=== PATIENT | male | born 1935 | race Caucasian/White ===

== ENCOUNTER 2020-02-25 14:54 | Emergency (ER) | payer MEDICARE, OTHER ==
[2020-02-25] MEDS ORDERED: Sodium Chloride 0.9% 10 ML Syringe FLUSH PRN (14:59)
[2020-02-25] MEDS ORDERED: Sodium Chloride 0.9% 2.5 ML Syringe FLUSH PRN (14:59)
--- NOTE | 2020-02-25 15:01 | EDM.PDOC ---
ED HPI GENERAL MEDICAL PROBLEM - General Chief Complaint: Chest Pain Stated Complaint: CHEST PAIN Time Seen by Provider: 02/25/20 14:57 - History of Present Illness INITIAL COMMENTS - FREE TEXT/NARRATIVE: History of present illness: Patient complains of chest pressure. It started last night. Associated with shortness of breath. Does not really diaphoresis nausea vomiting or other symptoms. 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 The patient had thyroid cancer diagnosed in 2013. He had a thyroidectomy in [place]. Subsequently had to have an emergency tracheostomy in [place]. The patient has body aches, fatigue, extreme weakness that he has experienced since he started the oral chemotherapy and these are listed as side effects on the brochure that they brought. [] Review of systems: As per history of present illness and below otherwise all systems reviewed and negative. Past medical history: As per history of present illness and as reviewed below otherwise noncontributory. Surgical history: As per history of present illness and as reviewed below otherwise noncontributory. Social history: No reported history of drug or alcohol abuse. Family history: As per history of present illness and as reviewed below otherwise noncontributory. Physical exam: Constitutional -thin with muscle wasting-and in no acute distress HEENT -yes to me with anterior site no evidence of inflammation. Normocephalic, no evidence of trauma - external nose and mouth normal - no mass in neck and no JVD - mucosae moist EYES - full EOM, PERRL, no icterus - no evidence of inflammation, injection, or drainage Respiratory -expiratory phase of respiration. Wheezes throughout. Diminished breath sounds throughout. No respiratory distress, equal bilateral expansion. Cardiovascular - Regular Rhythm with S1 and S2 appreciated and no murmur, gallop or rub. GI - abdomen soft without distension or organomegaly - normal bowel sounds - no guard or rebound Musculoskeletal no gross deformity of long bones or joints - no tenderness, swelling or edema Neurologic - Alert and oriented times four - CN II-XII grossly intact - motor sensory and coordination symmetrically normal Psychiatric - appropriate mood and affect with normal thought content Hematologic - No petechiae or purpura - mucosa appropriate color and sclera not pale - normal nail bed color and refill Integument - no rash or evidence of trauma - normal turgor Diagnostics: [] Therapeutics: [] Impression: [] Plan: [] Definitive disposition and diagnosis as appropriate pending reevaluation and review of above. Middle Chest Pain Score (Numeric/FACES): 1 - Related Data Allergies Allergy/AdvReac Type Severity Reaction Status Date / Time No Known Allergies Allergy Verified 02/25/20 14:55 Home Meds: Home Meds Aspirin [Latasha Chewable] 81 mg PO DAILY 10/27/13 [History] Levothyroxine 125 mcg PO DAILY 10/27/13 [History] calcitrioL [Rocaltrol] 2 tab PO DAILY 10/27/13 [History] Ezetimibe [Zetia] 0.5 tab PO DAILY 10/14/15 [History] Acetaminophen/HYDROcodone [Dugger 325-7.5 MG] 1 tab PO Q4H PRN #20 tab 02/25/20 [Rx] Lenvatinib Mesylate [Lenvima] 24 mg PO DAILY 02/25/20 [History] Metoprolol Succinate [Toprol XL 50mg] 50 mg PO DAILY 02/25/20 [History] amLODIPine [Norvasc] 5 mg PO DAILY 02/25/20 [History] Past Medical History Endocrine/Metabolic History: Reports: Hypothyroidism Oncologic (Cancer) History: Reports: Thyroid - Infectious Disease History Infectious Disease History: Reports: Chicken Pox, Measles, Mumps, Shingles - Past Surgical History Oncologic Surgical History: Reports: Other (See Below) Social & Family History - Family History Family Medical History: No Pertinent Family History ED ROS GENERAL - Review of Systems Review Of Systems: Comprehensive ROS is negative, except as noted in HPI. ED EXAM, GENERAL - Physical Exam Exam: See Below Free Text/Narrative:: My physical exam is in the HPI #1 Interpretation EKG Interpretation Comments: eKG done 1452 hrs. atrial fibrillation heart rate 110 axis 59 QT 595. There are borderline T abnormalities in a prolonged QT. Compared to 01/03/2020 there are no changes to indicate acute injury. Impression no acute injury Course - Vital Signs Text/Narrative:: 5:55 PM the patient is quite comfortable. He was able comfortable with a pain of only 1 out of 10 before the morphine. Patient has no pain medicine at home. The CT reveals some reduction in size of the pulmonary nodules as had been helped with the new medicine. There is a lytic lesion in the 7 which is new since a prior CT of about a month ago. Lesions in the lumbar spine and sacral area are still present. These are considered large enough to be at risk for pathologic fracture as it is a lytic lesion in C7. Last Recorded V/S: Last Vital Signs Temp 36.3 C 02/25/20 14:56 Pulse 91 02/25/20 15:30 Resp 17 02/25/20 15:30 BP 129/83 02/25/20 15:30 Pulse Ox 94 L 02/25/20 15:30 - Orders/Labs/Meds Orders: Active Orders 24 hr Category Date Time Status EKG Documentation Completion [RC] AM Care 02/25/20 14:59 Active Sodium Chloride 0.9% [Saline Flush] Med 02/25/20 14:59 Active 10 ml FLUSH ASDIRECTED PRN Sodium Chloride 0.9% [Saline Flush] Med 02/25/20 14:59 Active 2.5 ml FLUSH ASDIRECTED PRN Saline Lock Insert [OM.PC] Stat Oth 02/25/20 14:59 Ordered Medication Orders Sodium Chloride (Saline Flush) 10 ml FLUSH ASDIRECTED PRN PRN Reason: Keep Vein Open Last Admin: 02/25/20 15:13 Dose: 10 ml Documented by: MATEO Sodium Chloride (Saline Flush) 2.5 ml FLUSH ASDIRECTED PRN PRN Reason: Keep Vein Open Last Admin: 02/25/20 15:14 Dose: 2.5 ml Documented by: MATEO Labs: Laboratory Tests 02/25/20 02/25/20 02/25/20 Range/Units 14:55 14:55 14:55 WBC 6.95 (4.0-11.0) K/uL RBC 5.47 (4.50-5.90) M/uL Hgb 17.0 (13.0-17.0) g/dL Hct 49.5 (38.0-50.0) % MCV 90.5 (80.0-98.0) fL MCH 31.1 (27.0-32.0) pg MCHC 34.3 (31.0-37.0) g/dL RDW Std Deviation 47.7 (28.0-62.0) fl RDW Coeff of Dillon 15 (11.0-15.0) % Plt Count 138 L (150-400) K/uL MPV 10.80 (7.40-12.00) fL Neut % (Auto) 72.0 (48.0-80.0) % Lymph % (Auto) 18.7 (16.0-40.0) % [place] % (Auto) 8.1 (0.0-15.0) % Eos % (Auto) 0.9 (0.0-7.0) % Baso % (Auto) 0.3 (0.0-1.5) % Neut # (Auto) 5.0 (1.4-5.7) K/uL Lymph # (Auto) 1.3 (0.6-2.4) K/uL Bel[place]ami # (Auto) 0.6 (0.0-0.8) K/uL Eos # (Auto) 0.1 (0.0-0.7) K/uL Baso # (Auto) 0.0 (0.0-0.1) K/uL Nucleated RBC % 0.0 /100WBC Nucleated RBCs # 0 K/uL Sodium 141 (136-148) mmol/L Potassium 4.3 (3.5-5.1) mmol/L Chloride 102 (98-107) mmol/L Carbon Dioxide 29.5 (21.0-32.0) mmol/L BUN 26 H (7.0-18.0) mg/dL Creatinine 1.2 (0.8-1.3) mg/dL Est Cr Clr Drug Dosing 45.36 mL/min Estimated GFR (MDRD) 57.4 ml/min Glucose 103 (74-106) mg/dL Calcium 9.1 (8.5-10.1) mg/dL Total Bilirubin 1.1 H (0.2-1.0) mg/dL AST 27 (15-37) IU/L ALT 26 (14-63) IU/L Alkaline Phosphatase 133 H (46-116) U/L Troponin I < 0.050 (0.000-0.056) ng/mL Total Protein 7.3 (6.4-8.2) g/dL Albumin 3.5 (3.4-5.0) g/dL Globulin 3.8 (2.6-4.0) g/dL Albumin/Globulin Ratio 0.9 (0.9-1.6) Influenza Type A RNA (NEGATIVE) Influenza Type B RNA (NEGATIVE) SARS-CoV-2 RNA (JEFFREY) (NEGATIVE) 02/25/20 02/25/20 Range/Units 15:28 17:35 WBC (4.0-11.0) K/uL RBC (4.50-5.90) M/uL Hgb (13.0-17.0) g/dL Hct (38.0-50.0) % MCV (80.0-98.0) fL MCH (27.0-32.0) pg MCHC (31.0-37.0) g/dL RDW Std Deviation (28.0-62.0) fl RDW Coeff of Dillon (11.0-15.0) % Plt Count (150-400) K/uL MPV (7.40-12.00) fL Neut % (Auto) (48.0-80.0) % Lymph % (Auto) (16.0-40.0) % [place] % (Auto) (0.0-15.0) % Eos % (Auto) (0.0-7.0) % Baso % (Auto) (0.0-1.5) % Neut # (Auto) (1.4-5.7) K/uL Lymph # (Auto) (0.6-2.4) K/uL Bel[place]ami # (Auto) (0.0-0.8) K/uL Eos # (Auto) (0.0-0.7) K/uL Baso # (Auto) (0.0-0.1) K/uL Nucleated RBC % /100WBC Nucleated RBCs # K/uL Sodium (136-148) mmol/L Potassium (3.5-5.1) mmol/L Chloride (98-107) mmol/L Carbon Dioxide (21.0-32.0) mmol/L BUN (7.0-18.0) mg/dL Creatinine (0.8-1.3) mg/dL Est Cr Clr Drug Dosing mL/min Estimated GFR (MDRD) ml/min Glucose (74-106) mg/dL Calcium (8.5-10.1) mg/dL Total Bilirubin (0.2-1.0) mg/dL AST (15-37) IU/L ALT (14-63) IU/L Alkaline Phosphatase (46-116) U/L Troponin I < 0.050 (0.000-0.056) ng/mL Total Protein (6.4-8.2) g/dL Albumin (3.4-5.0) g/dL Globulin (2.6-4.0) g/dL Albumin/Globulin Ratio (0.9-1.6) Influenza Type A RNA NEGATIVE (NEGATIVE) Influenza Type B RNA NEGATIVE (NEGATIVE) SARS-CoV-2 RNA (JEFFREY) NEGATIVE (NEGATIVE) Meds: Medications Generic Name Dose Route Start Last Admin Trade Name Freq PRN Reason Stop Dose Admin Sodium Chloride 10 ml 02/25/20 14:59 02/25/20 15:13 Saline Flush FLUSH 10 ml ASDIRECTED PRN Administration Keep Vein Open Sodium Chloride 2.5 ml 02/25/20 14:59 02/25/20 15:14 Saline Flush FLUSH 2.5 ml ASDIRECTED PRN Administration Keep Vein Open Discontinued Medications Generic Name Dose Route Start Last Admin Trade Name Freq PRN Reason Stop Dose Admin Iopamidol 100 ml 02/25/20 17:08 02/25/20 17:09 Isovue Multipack-370 (76%) IVPUSH 02/25/20 17:09 100 ml ONETIME ONE Administration Morphine Sulfate 2 mg 02/25/20 16:46 02/25/20 17:05 Morphine IVPUSH 02/25/20 16:47 2 mg ONETIME ONE Administration Departure - Departure Time of Disposition: 18:07 Disposition: Home, Self-Care 01 Condition: Good Clinical Impression: Dyspnea, Chest pain, Pulmonary metastasis, Metastasis to spinal column - Discharge Information Prescriptions: Acetaminophen/HYDROcodone [Dugger 325-7.5 MG] 1 tab PO Q4H PRN #20 tab PRN Reason: Pain (Moderate 4-6) Instructions: Shortness of Breath, Adult, [id number], Nonspecific Chest Pain, Adult Referrals: PCP,None [Primary Care Provider] - Forms: ED Department Discharge Additional Instructions: [facility] - Primary Care [address] [place] [id number] [id number] The following information is given to patients seen in the emergency department who are being discharged to home. This information is to outline your options for follow-up care. We provide all patients seen in our emergency department with a follow-up referral. The need for follow-up, as well as the timing and circumstances, are variable depending upon the specifics of your emergency department visit. If you don't have a primary care physician on staff, we will provide you with a referral. We always advise you to contact your personal physician following an emergency department visit to inform them of the circumstance of the visit and for follow-up with them and/or the need for any referrals to a consulting specialist. The emergency department will also refer you to a specialist when appropriate. This referral assures that you have the opportunity for follow-up care with a specialist. All of these measure are taken in an effort to provide you with optimal care, which includes your follow-up. Under all circumstances we always encourage you to contact your private physician who remains a resource for coordinating your care. When calling for follow-up care, please make the office aware that this follow-up is from your recent emergency room visit. If for any reason you are refused follow-up, please contact the [facility] Emergency Department at and asked to speak to the emergency department charge nurse. Sepsis Event Note (ED) - Evaluation Sepsis Screening Result: No Definite Risk - Focused Exam Vital Signs: Vital Signs Temp Pulse Resp BP Pulse Ox 02/25/20 15:30 91 17 129/83 94 L 02/25/20 14:56 36.3 C 107 H 16 142/97 H 96 - My Orders Last 24 Hours: My Active Orders 02/25/20 14:59 EKG Documentation Completion [RC] AM Sodium Chloride 0.9% [Saline Flush] 10 ml FLUSH ASDIRECTED PRN Sodium Chloride 0.9% [Saline Flush] 2.5 ml FLUSH ASDIRECTED PRN Saline Lock Insert [OM.PC] Stat - Assessment/Plan Last 24 Hours: My Active Orders 02/25/20 14:59 EKG Documentation Completion [RC] AM Sodium Chloride 0.9% [Saline Flush] 10 ml FLUSH ASDIRECTED PRN Sodium Chloride 0.9% [Saline Flush] 2.5 ml FLUSH ASDIRECTED PRN Saline Lock Insert [OM.PC] Stat
[2020-02-25 15:29] LABS: CARBON DIOXIDE,CO2 29.5 mmol/L (21.0-32.0); POTASSIUM,K 4.3 mmol/L (3.5-5.1)
[2020-02-25 16:24] LABS: CORONAVIRUS COVID-19 NAA NEGATIVE (NEGATIVE); INFLUENZA A NAA NEGATIVE (NEGATIVE); INFLUENZA B NAA NEGATIVE (NEGATIVE)
--- NOTE | 2020-02-25 16:45 | CR ---
Indication: Chest pain. Technique: AP portable view of the chest. Comparison: April 13, 2014. Findings: Minimal left basilar atelectasis is identified. The heart is normal in size. No pleural effusion or pneumothorax is identified. Impression: Minimal left basilar atelectasis. Dictated by Pretty Silvestre MD @ Feb 25 2020 3:35PM Signed by Dr. Pretty Silvestre @ Feb 25 2020 4:43PM
[2020-02-25] MEDS ORDERED: Morphine 2 MG/ML SYRINGE IVPUSH ONE (16:46)
[2020-02-25] MEDS ORDERED: Iopamidol 755 MG/ML 500 ML Multipack Bottle IVPUSH ONE (17:08)
--- NOTE | 2020-02-25 17:48 | CT ---
HISTORY: Thyroid cancer. Dyspnea. Taking chemotherapy. COMPARISON: 01/16/2028. TECHNIQUE: Axial images were obtained through the chest following 100 cc of Isovue-370 intravenous contrast. FINDINGS: Tracheostomy tube. Adequate bolus of contrast. No evidence for pulmonary embolism. Left infrahilar mass has decreased in size and now measures 2.6 x 2.7 previously 4 cm. Most of the pulmonary nodules have decreased in size as well. For example in the posterior right lower lobe there is a pulmonary nodule that measures 1.1 cm, previously 1.5 cm image 83 series 4. No acute infiltrates. Old rib fracture deformity on the left. Lytic lesions of the vertebral bodies L1, T7 and C7. Given their size they are at risk for pathologic fracture. Smaller lytic areas in the spine and manubrium also possible metastatic bony lesions. The adrenal glands are normal. Impression : 1. No evidence for pulmonary embolism. 2. Decrease in size of left infrahilar mass, and bilateral multiple pulmonary nodules appear smaller. 3. Metastatic bony lesions, notably at L1 and T7 and C7 vertebral bodies. Given their size, they are at risk for pathologic fracture. Please note that all CT scans at this facility use dose modulation, iterative reconstruction, and/or weight-based dosing when appropriate to reduce radiation dose to as low as reasonably achievable. Dictated by Eladia Da Silva MD @ Feb 25 2020 5:35PM Signed by Dr. Eladia Da Silva @ Feb 25 2020 5:47PM
[2020-02-25 18:26] VITALS: BP 141/88; PULSE 102
== END 2020-02-25 18:25 | disposition home or self-care (01) ==
LOC: MW.ED 14:54
DX: C41.2 Malignant neoplasm of vertebral column (principal); C78.00 Secondary malignant neoplasm of unspecified lung; E03.9 Hypothyroidism, unspecified; I48.91 Unspecified atrial fibrillation; Z79.899 Other long term (current) drug therapy; Z20.828 Contact with and (suspected) exposure to other viral communicable diseases
CPT/HCPCS: 0240U; 36415; 71045; 71275; 80053; 84484; 85025; 93005; 96374; 99285; J2270; Q9967; 93010; 99284

== ENCOUNTER 2020-08-22 10:42 | Emergency (ER) | payer MEDICARE, OTHER ==
[2020-08-22] MEDS ORDERED: Sodium Chloride 0.9% 1,000 ML IV ONE (11:10)
[2020-08-22] MEDS ORDERED: Sodium Chloride 0.9% 2.5 ML Syringe FLUSH PRN (11:10)
[2020-08-22] MEDS ORDERED: Sodium Chloride 0.9% 10 ML Syringe FLUSH PRN (11:10)
--- NOTE | 2020-08-22 11:19 | EDM.PDOC ---
ED HPI GENERAL MEDICAL PROBLEM - General Chief Complaint: Respiratory Problem Stated Complaint: SOB Time Seen by Provider: 08/22/20 10:57 Source of Information: Reports: Patient History Limitations: Reports: No Limitations - History of Present Illness INITIAL COMMENTS - FREE TEXT/NARRATIVE: HISTORY AND PHYSICAL: History of present illness: Patient is an 85-year-old male who presents to the emergency room with complaints of shortness of breath, intermittent chest pain, fatigue and generally feeling well since January but worse over the past few days to 1 week. Patient has a past medical history of metastatic thyroid cancer and is currently taking oral Lenvima over the past 6 months. The states he is constantly having mixed side effects from these drugs and feels it is related to why he is here today. Patient's shortness of breath and chest pain are exacerbated with physical activity and improve at rest. He currently is not SOB nor having chest pain, but feels "run down". Patient denies any fever, chills, headache, change in vision, syncope or near syncope. Denies any hemoptysis or cough. Denies any abdominal pain, nausea, vomiting, diarrhea, constipation or dysuria. Has not noted any blood in urine or stool. Patient has been eating and drinking appropriately. Past medical history from atrial fibrillation, hypertension, thyroidectomy, thyroid cancer with metastases. Primary care provider is Dr. Curtis. Review of systems: As per history of present illness and below otherwise all systems reviewed and negative. Past medical history: As per history of present illness and as reviewed below otherwise noncontributory. Surgical history: As per history of present illness and as reviewed below otherwise noncontributory. Social history: See social history for further information Family history: As per history of present illness and as reviewed below otherwise noncontributory. Physical exam: General: Chronically ill appearing 85-year-old male. Alert and orientated x 3. Nontoxic in appearance and in no acute distress. Vital signs are stable and have been reviewed by me. Nursing notes were reviewed. Accompanied by who is at bedside and attentive to needs. HEENT: Atraumatic, normocephalic, pupils equal and reactive bilaterally, negative for conjunctival pallor or scleral icterus, mucous membranes moist, throat clear, trach dressing intact without any surrounding erythema, neck supple, nontender, trachea midline. No drooling or trismus noted. No meningeal signs. No hot potato voice noted. Lungs: Clear to auscultation bilaterally. No wheezes, rales, or rhonchi. Chest nontender. Normal work of breathing, no accessory muscles used. Heart: S1S2, regular rate and rhythm without overt murmur, gallops, or rubs. No JVD. No peripheral edema Abdomen: Soft, nondistended, nontender. Normoactive bowel sounds. Negative for masses or costovertebral tenderness. Skin: Intact, warm, dry. No lesions or rashes noted. Hematologic: No petechiae or purpra. Mucosa appropriate color and normal nail bed color and refill. Extremities: Atraumatic, moves all extremities per self without difficulty or deficits, negative for cords or calf pain. Neurovascular unremarkable. Neuro: Awake, alert, oriented. Cranial nerves II through XII unremarkable. Cerebellum unremarkable. Motor and sensory unremarkable throughout. Exam nonfocal. Psychiatric: Mood and affect are appropriate. Normal thought process. Answering questions appropriately. Notes: *This patient was seen and evaluated during the 2019 SARS-CoV-2 novel coronavirus pandemic period. Community viral transmission is ongoing at time of this encounter and the emergency department is operating under pandemic response procedures. 07/20/2020: Patient had a CT of the soft tissue neck, chest, abdomen and pelvis. 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 These were compared to imaging that was done on April 092020, no new findings. Patient is an 85-year-old male who has a history of metastatic thyroid cancer who states he has not felt well since initiating oral chemotherapy. His states that the symptoms/side effects he has experienced from the oral chemotherapy range/very constantly. She feels today's symptoms are related to the medications he is taking. Patient states he has felt short of breath and having intermittent chest pain anytime he is ambulating. Symptoms do resolve when he is at rest. He is agreeable to lab work and imaging. I will add a D- dimer on to the patient's labs as he is on a beta-reina with a heart rate in the 90s. BUN and creatinine are slightly elevated, I do see he has a history of this in the past. He has recieved a liter of NS. Patient's D-dimer is elevated, will do a CT a of the chest to rule out PE. COVID-[address] shows no evidence of acute PE. Lung and bone metastases with no significant change. I have talked with the patient about today's findings, in addition to providing specific details for plan of care. Patient states he feels "fine" while he has been here in the emergency room. His vital signs have been stable. We discussed admission versus being discharged home. He would prefer to be discharged home which I believe is appropriate. I did encourage him to reach out to his oncologist as he does have frequent side effects with the medications he is taking. Reassessment at the time of disposition demonstrates that the patient is in no acute distress. The patient is stable for discharge, counseling was provided and we discussed in great detail signs and symptoms that would prompt them to return to the Emergency Department. Medication, follow up and supportive care measures were reviewed and discussed. Voices understanding and is agreeable to plan of care. Denies any further questions or concerns at this time. Diagnostics: CBC, CMP, Troponin, EKG, chest x-ray, d.dimer, CT chest Therapeutics: NS @100mls/hr Prescription: None Impression: Dyspnea History of metastatic thyroid cancer Plan: 1. You were evaluated today on an emergent basis. Your lab work, COVID, chest x-ray and CT of the chest show no concerning findings for your shortness of breath. Please inform your primary care provider and oncologist about your symptoms and follow-up with them for reevaluation. If your symptoms should worsen, new symptoms develop or any of the signs and symptoms we discussed should arise please return to the emergency room or call 911 (if needed). 2. You can alternate Tylenol and ibuprofen as needed for pain and fever management. 3. We encourage you to follow up with your primary care provider and/or recommended specialist in the next few days for re-evaluation and further care/management. Definitive disposition and diagnosis as appropriate pending reevaluation and review of above. - Related Data Allergies Allergy/AdvReac Type Severity Reaction Status Date / Time No Known Allergies Allergy Verified 08/22/20 11:44 Home Meds: Home Meds Levothyroxine 125 mcg PO DAILY 10/27/13 [History] calcitrioL [Rocaltrol] 2 tab PO DAILY 10/27/13 [History] Ezetimibe [Zetia] 0.5 tab PO DAILY 10/14/15 [History] Lenvatinib Mesylate [Lenvima] 14 mg PO DAILY 02/25/20 [History] Metoprolol Succinate [Toprol XL 50mg] 50 mg PO DAILY 02/25/20 [History] amLODIPine [Norvasc] 5 mg PO DAILY 02/25/20 [History] Past Medical History HEENT History: Reports: None Cardiovascular History: Reports: Afib, High Cholesterol, Hypertension Respiratory History: Reports: None Gastrointestinal History: Reports: None Genitourinary History: Reports: None Musculoskeletal History: Reports: None Neurological History: Reports: None Psychiatric History: Reports: None Endocrine/Metabolic History: Reports: Hypothyroidism Hematologic History: Reports: None Oncologic (Cancer) History: Reports: Thyroid - Infectious Disease History Infectious Disease History: Reports: Chicken Pox, Measles, Mumps, Shingles - Past Surgical History Oncologic Surgical History: Reports: Other (See Below) Social & Family History - Family History Family Medical History: No Pertinent Family History - Caffeine Use Caffeine Use: Reports: Coffee ED ROS GENERAL - Review of Systems Review Of Systems: Comprehensive ROS is negative, except as noted in HPI. ED EXAM, GENERAL - Physical Exam Exam: See Below (See dictation) Course - Vital Signs Last Recorded V/S: Last Vital Signs Temp 96.9 F 08/22/20 10:50 Pulse 92 08/22/20 10:50 Resp BP 117/72 08/22/20 10:50 Pulse Ox 96 08/22/20 10:50 - Orders/Labs/Meds Orders: Active Orders 24 hr Category Date Time Status EKG Documentation Completion [RC] STAT Care 08/22/20 11:10 Active Sodium Chloride 0.9% [Normal Saline] 1,000 ml Med 08/22/20 11:10 Active IV STAT Sodium Chloride 0.9% [Saline Flush] Med 08/22/20 11:10 Active 10 ml FLUSH ASDIRECTED PRN Sodium Chloride 0.9% [Saline Flush] Med 08/22/20 11:10 Active 2.5 ml FLUSH ASDIRECTED PRN Saline Lock Insert [OM.PC] Stat Oth 08/22/20 11:10 Ordered Medication Orders Sodium Chloride (Normal Saline) 1,000 mls @ 100 mls/hr IV STAT ONE Stop: 08/22/20 21:09 Last Admin: 08/22/20 11:26 Dose: 100 mls/hr Documented by: DIONICIO Sodium Chloride (Sodium Chloride 0.9% 10 Ml Syringe) 10 ml FLUSH ASDIRECTED PRN PRN Reason: Keep Vein Open Last Admin: 08/22/20 11:26 Dose: 10 ml Documented by: DIONICIO Sodium Chloride (Sodium Chloride 0.9% 2.5 Ml Syringe) 2.5 ml FLUSH ASDIRECTED PRN PRN Reason: Keep Vein Open Last Admin: 08/22/20 11:27 Dose: 2.5 ml Documented by: DIONICIO Labs: Laboratory Tests 08/22/20 08/22/20 08/22/20 Range/Units 11:20 11:27 11:27 WBC Cancelled 4.77 RBC Cancelled 4.70 Hgb Cancelled 15.4 Hct Cancelled 44.5 MCV Cancelled 94.7 MCH Cancelled 32.8 H MCHC Cancelled 34.6 RDW Std Deviation Cancelled 48.4 RDW Coeff of Dillon Cancelled 14 Plt Count Cancelled 208 MPV Cancelled 10.50 Neut % (Auto) Cancelled 78.0 Lymph % (Auto) Cancelled 14.3 L Barren % (Auto) Cancelled 6.7 Eos % (Auto) Cancelled 0.6 Baso % (Auto) Cancelled 0.4 Neut # (Auto) Cancelled 3.7 Lymph # (Auto) Cancelled 0.7 Barren # (Auto) Cancelled 0.3 Eos # (Auto) Cancelled 0.0 Baso # (Auto) Cancelled 0.0 Add Manual Diff Cancelled Nucleated RBC % Cancelled 0.0 Nucleated RBCs # Cancelled 0 D-Dimer, Quantitative (0.0-0.50) mg/L FEU Sodium 138 (136-148) mmol/L Potassium 4.0 (3.5-5.1) mmol/L Chloride 102 (98-107) mmol/L Carbon Dioxide 23.8 (21.0-32.0) mmol/L BUN 33 H (7.0-18.0) mg/dL Creatinine 1.6 H (0.8-1.3) mg/dL Est Cr Clr Drug Dosing 30.26 mL/min Estimated GFR (MDRD) 41.1 ml/min Glucose 93 (74-106) mg/dL Calcium 8.2 L (8.5-10.1) mg/dL Total Bilirubin 0.7 (0.2-1.0) mg/dL AST 27 (15-37) IU/L ALT 37 (14-63) IU/L Alkaline Phosphatase 86 (46-116) U/L Troponin I < 0.050 (0.000-0.056) ng/mL Total Protein 6.4 (6.4-8.2) g/dL Albumin 2.7 L (3.4-5.0) g/dL Globulin 3.7 (2.6-4.0) g/dL Albumin/Globulin Ratio 0.7 L (0.9-1.6) Urine Color Urine Appearance Urine pH (5.0-8.0) Ur Specific Surveyor (1.001-1.035) Urine Protein (NEGATIVE) mg/dL Urine Glucose (UA) (NEGATIVE) mg/dL Urine Ketones (NEGATIVE) mg/dL Urine Occult Blood (NEGATIVE) Urine Nitrite (NEGATIVE) Urine Bilirubin (NEGATIVE) Urine Urobilinogen (<2.0) EU/dL Ur Leukocyte Esterase (NEGATIVE) U Hyaline Cast (Auto) (0-2/LPF) Urine RBC (0-2/HPF) Urine WBC (0-5/HPF) Ur Squamous Epith Cells Calcium Oxalate Crystal (NEGATIVE) Urine Bacteria (NEGATIVE) Urine Mucus (NONE-MOD) SARS-CoV-2 RNA (JEFFREY) (NEGATIVE) 08/22/20 08/22/20 08/22/20 Range/Units 11:40 12:13 13:56 WBC RBC Hgb Hct MCV MCH MCHC RDW Std Deviation RDW Coeff of Dillon Plt Count MPV Neut % (Auto) Lymph % (Auto) Barren % (Auto) Eos % (Auto) Baso % (Auto) Neut # (Auto) Lymph # (Auto) Barren # (Auto) Eos # (Auto) Baso # (Auto) Add Manual Diff Nucleated RBC % Nucleated RBCs # D-Dimer, Quantitative 1.80 H (0.0-0.50) mg/L FEU Sodium (136-148) mmol/L Potassium (3.5-5.1) mmol/L Chloride (98-107) mmol/L Carbon Dioxide (21.0-32.0) mmol/L BUN (7.0-18.0) mg/dL Creatinine (0.8-1.3) mg/dL Est Cr Clr Drug Dosing mL/min Estimated GFR (MDRD) ml/min Glucose (74-106) mg/dL Calcium (8.5-10.1) mg/dL Total Bilirubin (0.2-1.0) mg/dL AST (15-37) IU/L ALT (14-63) IU/L Alkaline Phosphatase (46-116) U/L Troponin I (0.000-0.056) ng/mL Total Protein (6.4-8.2) g/dL Albumin (3.4-5.0) g/dL Globulin (2.6-4.0) g/dL Albumin/Globulin Ratio (0.9-1.6) Urine Color YELLOW Urine Appearance CLEAR Urine pH 5.0 (5.0-8.0) Ur Specific Surveyor 1.015 (1.001-1.035) Urine Protein TRACE H (NEGATIVE) mg/dL Urine Glucose (UA) NEGATIVE (NEGATIVE) mg/dL Urine Ketones NEGATIVE (NEGATIVE) mg/dL Urine Occult Blood NEGATIVE (NEGATIVE) Urine Nitrite NEGATIVE (NEGATIVE) Urine Bilirubin NEGATIVE (NEGATIVE) Urine Urobilinogen 0.2 (<2.0) EU/dL Ur Leukocyte Esterase NEGATIVE (NEGATIVE) U Hyaline Cast (Auto) MODERATE (0-2/LPF) Urine RBC NONE SEEN (0-2/HPF) Urine WBC 0-1 (0-5/HPF) Ur Squamous Epith Cells RARE Calcium Oxalate Crystal MODERATE (NEGATIVE) Urine Bacteria NOT SEEN (NEGATIVE) Urine Mucus LIGHT (NONE-MOD) SARS-CoV-2 RNA (JEFFREY) NEGATIVE (NEGATIVE) Meds: Medications Generic Name Dose Route Start Last Admin Trade Name Freq PRN Reason Stop Dose Admin Sodium Chloride 1,000 mls @ 100 mls/hr 08/22/20 11:10 08/22/20 11:26 Normal Saline IV 08/22/20 21:09 100 mls/hr STAT ONE Administration Sodium Chloride 10 ml 08/22/20 11:10 08/22/20 11:26 Sodium Chloride 0.9% 10 Ml Syringe FLUSH 10 ml ASDIRECTED PRN Administration Keep Vein Open Sodium Chloride 2.5 ml 08/22/20 11:10 08/22/20 11:27 Sodium Chloride 0.9% 2.5 Ml Syringe FLUSH 2.5 ml ASDIRECTED PRN Administration Keep Vein Open Discontinued Medications Generic Name Dose Route Start Last Admin Trade Name Freq PRN Reason Stop Dose Admin Iopamidol 100 ml 08/22/20 13:03 08/22/20 13:03 Iopamidol 755 Mg/Ml 500 Ml Multipack Bottle IVPUSH 08/22/20 13:04 100 ml ONETIME STA Administration Departure - Departure Time of Disposition: 14:30 Disposition: Home, Self-Care 01 Clinical Impression: Metastasis from thyroid cancer Dyspnea Qualifiers: Dyspnea type: dyspnea on exertion Qualified Code(s): R06.00 - Dyspnea, unspecified - Discharge Information Instructions: Shortness of Breath, Adult, [id number] Referrals: John Cutris MD [Primary Care Provider] - Forms: ED Department Discharge Additional Instructions: The following information is given to patients seen in the emergency department who are being discharged to home. This information is to outline your options for follow-up care. We provide all patients seen in our emergency department with a follow-up referral. The need for follow-up, as well as the timing and circumstances, are variable depending upon the specifics of your emergency department visit. If you don't have a primary care physician on staff, we will provide you with a referral. We always advise you to contact your personal physician following an emergency department visit to inform them of the circumstance of the visit and for follow-up with them and/or the need for any referrals to a consulting specialist. The emergency department will also refer you to a specialist when appropriate. This referral assures that you have the opportunity for follow-up care with a specialist. All of these measure are taken in an effort to provide you with optimal care, which includes your follow-up. Under all circumstances we always encourage you to contact your private physician who remains a resource for coordinating your care. When calling for follow-up care, please make the office aware that this follow-up is from your recent emergency room visit. If for any reason you are refused follow-up, please contact the [facility] Emergency Department at and asked to speak to the emergency department charge nurse. [facility] [address] [place] [id number] [id number] Thank you for choosing the [facility] emergency department in [place] for your medical needs today. It was a pleasure caring for you. Today you were seen in the emergency department for shortness of breath. 1. You were evaluated today on an emergent basis. Your lab work, COVID, chest x-ray and CT of the chest show no concerning findings for your shortness of breath. Please inform your primary care provider and oncologist about your symptoms and follow-up with them for reevaluation. If your symptoms should worsen, new symptoms develop or any of the signs and symptoms we discussed should arise please return to the emergency room or call 911 (if needed). 2. You can alternate Tylenol and ibuprofen as needed for pain and fever management. 3. We encourage you to follow up with your primary care provider and/or recommended specialist in the next few days for re-evaluation and further care/management. Sepsis Event Note (ED) - Evaluation Sepsis Screening Result: No Definite Risk - Focused Exam Vital Signs: Vital Signs Temp Pulse BP Pulse Ox 08/22/20 10:50 96.9 F 92 117/72 96 - My Orders Last 24 Hours: My Active Orders 08/22/20 11:10 EKG Documentation Completion [RC] STAT Sodium Chloride 0.9% [Normal Saline] 1,000 ml IV STAT Sodium Chloride 0.9% [Saline Flush] 10 ml FLUSH ASDIRECTED PRN Sodium Chloride 0.9% [Saline Flush] 2.5 ml FLUSH ASDIRECTED PRN Saline Lock Insert [OM.PC] Stat - Assessment/Plan Last 24 Hours: My Active Orders 08/22/20 11:10 EKG Documentation Completion [RC] STAT Sodium Chloride 0.9% [Normal Saline] 1,000 ml IV STAT Sodium Chloride 0.9% [Saline Flush] 10 ml FLUSH ASDIRECTED PRN Sodium Chloride 0.9% [Saline Flush] 2.5 ml FLUSH ASDIRECTED PRN Saline Lock Insert [OM.PC] Stat
[2020-08-22 12:22] LABS: BLOOD UREA NITROGEN,BUN 33 mg/dL (7.0-18.0); CARBON DIOXIDE,CO2 23.8 mmol/L (21.0-32.0); CHLORIDE,CL 102 mmol/L (98-107); GLUCOSE RANDOM 93 mg/dL (74-106); SODIUM,NA 138 mmol/L (136-148)
--- NOTE | 2020-08-22 12:45 | CR ---
INDICATION: Chest pain TECHNIQUE: Chest 1 view Comparison: 07/20/2020 and previous Findings: Cardiomediastinal silhouette is unremarkable. No focal lung consolidation, pleural effusion or pneumothorax. Healed left rib fracture deformities are again noted. Pulmonary and bone metastases better assessed on 07/20/2020 CT chest. Impression: No acute cardiopulmonary abnormality. Dictated by Sumit Walter MD @ 08/22/2020 12:43:[address] Sumit Walter @ Aug 22 2020 12:43PM
[2020-08-22] MEDS ORDERED: Iopamidol 755 MG/ML 500 ML Multipack Bottle IVPUSH STA (13:03)
--- NOTE | 2020-08-22 14:16 | CT ---
INDICATION: Shortness of breath. 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 COMPARISON: 07/20/2020. TECHNIQUE: CT angiography of the chest PE protocol. 80 cc IV [id number]. FINDINGS: No filling defect to indicate acute PE. Heart is top-normal in size. No pericardial effusion. Prominent mediastinal and hilar lymph nodes are unchanged from prior exam. Left hilar lymph node measuring 12 mm in short axis is unchanged. Bilateral pulmonary nodules consistent metastases are unchanged from prior. Right lung base nodule now demonstrates central cavitation (series 402 image 137). No pleural effusion or pneumothorax. No focal lung consolidation. Imaged upper abdomen is unremarkable. Lytic bone metastases with the largest at T7 are unchanged from prior. Tracheostomy is again noted. IMPRESSION: 1. No evidence of acute PE. 2. Lung and bone metastases with no significant change. Please note that all CT scans at this facility use dose modulation, iterative reconstruction, and/or weight-based dosing when appropriate to reduce radiation dose to as low as reasonably achievable. Dictated by Sumit Walter MD @ 08/22/2020 2:14:[address] Sumit Walter @ Aug 22 2020 2:14PM
--- NOTE | 2020-08-22 14:24 | PCM.EKG ---
#1 Interpretation EKG Date: 08/22/20 Time: 11:28 Rhythm: A-Fib Rate (Beats/Min): 83 [place]: RAD-Right [place] Deviation P-Wave: Present QRS: Normal ST-T: Normal QT: Normal Comparison: No Change (02/25/20) EKG Interpretation Comments: Atrial Fibrillation w/ RAD
[2020-08-22 14:48] VITALS: BP 135/70; PULSE 72
== END 2020-08-22 14:48 | disposition home or self-care (01) ==
LOC: MW.ED 10:42
DX: R06.02 Shortness of breath (principal); C73 Malignant neoplasm of thyroid gland; E78.00 Pure hypercholesterolemia, unspecified; I10 Essential (primary) hypertension; E03.9 Hypothyroidism, unspecified; Z79.899 Other long term (current) drug therapy; Z20.822 Contact with and (suspected) exposure to COVID-19
CPT/HCPCS: 36415; 71045; 71275; 80053; 81001; 84484; 85025; 85379; 93005; 99285; J7030; Q9967; U0002; 93010; 99284

== ENCOUNTER 2020-10-31 20:06 | Emergency (ER) | payer MEDICARE, OTHER ==
--- NOTE | 2020-10-31 20:35 | EDM.PDOC ---
ED HPI GENERAL MEDICAL PROBLEM - General Chief Complaint: General Stated Complaint: STOMA BLEEDING Time Seen by Provider: 10/31/20 20:26 - History of Present Illness INITIAL COMMENTS - FREE TEXT/NARRATIVE: History of present illness: [] Patient with current cancer with metastatic disease has coughed up blood twice tonight. His tracheostomy stoma is open and he is breathing well now. He is not weak and dizzy or sweaty. He is not orthostatic. The patient has a full body scan tomorrow. He agreed to let me do a chest x-ray to make sure there are no surprises might make him come back tonight. Review of systems: As per history of present illness and below otherwise all systems reviewed and negative. Past medical history: As per history of present illness and as reviewed below otherwise noncontributory. Surgical history: As per history of present illness and as reviewed below otherwise noncontributory. Social history: No reported history of drug or alcohol abuse. Family history: As per history of present illness and as reviewed below otherwise noncontributory. Physical exam: Constitutional - well developed, well-nourished and in no acute distress HEENT -colostomy stoma with no bleeding around it. There is some bright red blood in the posterior wall of the trachea. There is no active bleeding visible externally. Normocephalic, no evidence of trauma - external nose and mouth normal - no mass in neck and no JVD - mucosae moist EYES - full EOM, PERRL, no icterus - no evidence of inflammation, injection, or drainage Respiratory - no respiratory distress, equal bilateral expansion, lungs clear to auscultation and no abnormal lung sounds Cardiovascular - Regular Rhythm with S1 and S2 appreciated and no murmur, gallop or rub. GI - abdomen soft without distension or organomegaly - normal bowel sounds - no guard or rebound Musculoskeletal no gross deformity of long bones or joints - no tenderness, swelling or edema Neurologic - Alert and oriented times four - CN II-XII grossly intact - motor sensory and coordination symmetrically normal Psychiatric - appropriate mood and affect with normal thought content Hematologic - No petechiae or purpura - mucosa appropriate color and sclera not pale - normal nail bed color and refill Integument - no rash or evidence of trauma - normal turgor Diagnostics: [] Therapeutics: [] Impression: [] Plan: [] Definitive disposition and diagnosis as appropriate pending reevaluation and review of above. - Related Data Allergies Allergy/AdvReac Type Severity Reaction Status Date / Time No Known Allergies Allergy Verified 10/31/20 20:16 Home Meds: Home Meds Levothyroxine 125 mcg PO DAILY 10/27/13 [History] calcitrioL [Rocaltrol] 2 tab PO DAILY 10/27/13 [History] Ezetimibe [Zetia] 0.5 tab PO DAILY 10/14/15 [History] Lenvatinib Mesylate [Lenvima] 14 mg PO DAILY 02/25/20 [History] Metoprolol Succinate [Toprol XL 50mg] 50 mg PO DAILY 02/25/20 [History] amLODIPine [Norvasc] 5 mg PO DAILY 02/25/20 [History] Past Medical History HEENT History: Reports: None Cardiovascular History: Reports: Afib, High Cholesterol, Hypertension Respiratory History: Reports: None Gastrointestinal History: Reports: None Genitourinary History: Reports: None Musculoskeletal History: Reports: None Neurological History: Reports: None Psychiatric History: Reports: None Endocrine/Metabolic History: Reports: Hypothyroidism Hematologic History: Reports: None Oncologic (Cancer) History: Reports: Thyroid - Infectious Disease History Infectious Disease History: Reports: Chicken Pox, Measles, Mumps, Shingles - Past Surgical History Respiratory Surgical History: Reports: Tracheostomy Other Respiratory Surgeries/Procedures: Trach placed 2017 Oncologic Surgical History: Reports: Other (See Below) Other Oncologic Surgeries/Procedures: thyroidectomy Social & Family History - Family History Family Medical History: No Pertinent Family History - Tobacco Use Tobacco Use Status *Q: Former Tobacco User Used Tobacco, but Quit: Yes Month/Year Tobacco Last Used: 22 yrs ago - Caffeine Use Caffeine Use: Reports: Coffee - Recreational Drug Use Recreational Drug Use: No ED ROS GENERAL - Review of Systems Review Of Systems: Comprehensive ROS is negative, except as noted in HPI. ED EXAM, GENERAL - Physical Exam Exam: See Below Free Text/Narrative:: My physical exam is in the HPI Course - Vital Signs Last Recorded V/S: Last Vital Signs Temp 36.1 C 10/31/20 20:10 Pulse 118 H 10/31/20 20:10 Resp 16 10/31/20 20:10 BP 140/81 10/31/20 20:10 Pulse Ox 91 L 10/31/20 20:10 - Orders/Labs/Meds Orders: Active Orders 24 hr Category Date Time Status Chest 1V Frontal [CR] Stat Exams 10/31/20 20:33 Ordered Departure - Departure Time of Disposition: 20:52 Disposition: Home, Self-Care 01 Condition: Good Clinical Impression: Hemoptysis - Discharge Information Instructions: Hemoptysis, [id number] Referrals: John Curtis MD [Primary Care Provider] - Forms: ED Department Discharge Additional Instructions: Keep your appointment tomorrow. Follow-up with your doctor. Return if you bleed a lot or if you dizzy weak sweaty or feel like you are going to pass out. [facility] - [facility] [address] [place] [id number] [facility] [address] [place] [id number] The following information is given to patients seen in the emergency department who are being discharged to home. This information is to outline your options for follow-up care. We provide all patients seen in our emergency department with a follow-up referral. The need for follow-up, as well as the timing and circumstances, are variable depending upon the specifics of your emergency department visit. If you don't have a primary care physician on staff, we will provide you with a referral. We always advise you to contact your personal physician following an emergency department visit to inform them of the circumstance of the visit and for follow-up with them and/or the need for any referrals to a consulting specialist. The emergency department will also refer you to a specialist when appropriate. This referral assures that you have the opportunity for follow-up care with a specialist. All of these measure are taken in an effort to provide you with optimal care, which includes your follow-up. Under all circumstances we always encourage you to contact your private physician who remains a resource for coordinating your care. When calling for follow-up care, please make the office aware that this follow-up is from your recent emergency room visit. If for any reason you are refused follow-up, please contact the [facility] Emergency Department at and asked to speak to the emergency department charge nurse. Sepsis Event Note (ED) - Focused Exam Vital Signs: Vital Signs Temp Pulse Resp BP Pulse Ox 10/31/20 20:10 36.1 C 118 H 16 140/81 91 L - My Orders Last 24 Hours: My Active Orders 10/31/20 20:33 Chest 1V Frontal [CR] Stat - Assessment/Plan Last 24 Hours: My Active Orders 10/31/20 20:33 Chest 1V Frontal [CR] Stat
--- NOTE | 2020-10-31 20:57 | CR ---
HISTORY: Hemoptysis. TECHNIQUE: Portable frontal view the chest. COMPARISON: Chest x-ray 08/22/2020. FINDINGS: Hazy increased opacity in the infrahilar right lower lobe lung with interstitial thickening. No pleural effusion or pneumothorax. Pulmonary vasculature and cardiomediastinal silhouette are within normal limits. IMPRESSION: Hazy right lower lung opacity, favor pneumonia. Follow-up is recommended to ensure resolution. Dictated by Julius Ventura MD @ 10/31/2020 8:57:[address] Julius Ventura @ Oct 31 2020 8:57PM
[2020-10-31 21:03] VITALS: BP 126/80; PULSE 117
== END 2020-10-31 21:15 | disposition home or self-care (01) ==
LOC: MW.ED 20:06
DX: R04.2 Hemoptysis (principal); I48.91 Unspecified atrial fibrillation; E78.00 Pure hypercholesterolemia, unspecified; I10 Essential (primary) hypertension; E03.9 Hypothyroidism, unspecified; Z87.891 Personal history of nicotine dependence; Z79.899 Other long term (current) drug therapy
CPT/HCPCS: 36415; 71045; 71045-26; 80053; 85025; 99284-25

== ENCOUNTER 2020-11-01 23:22 | Emergency (ER) | payer MEDICARE, OTHER ==
--- NOTE | 2020-11-01 23:29 | EDM.PDOC ---
ED HPI GENERAL MEDICAL PROBLEM - General Stated Complaint: [facility] Time Seen by Provider: 11/01/20 23:22 - History of Present Illness INITIAL COMMENTS - FREE TEXT/NARRATIVE: Time seen was 2300 hrs. Time of was 2304. The times on the chart do not reflect this because the registration was substantially later than the actual occurrence. History of present illness: [] I was called by the paramedics because this patient was in asystole after having fallen and expressing more than 2 or 3 units of blood onto the floor in various parts of the house through his stoma of his tracheostomy. The paramedics told me he had asystole and they were doing CPR. They tell me the said he had a DNR on file but she did not have a copy of it. They also tell me the wanted him to do everything they could and try to resuscitate him. I instructed them to try to resuscitate the patient per the 's wishes since we could not verify the DNR. I saw the patient yesterday evening with bleeding from his stoma and it stopped on its own. He in fact tried to resist staying long enough to even get a chest x-ray and refused any further treatment. He left last night. 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 He has an oncologist that follows him. 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 The paramedics called back and said after epinephrine and atropine and CPR they did regain a pulse. By the time they arrived here the patient was in asystole again with occasional very small QRS representing an agonal rhythm. The patient had no pulse and no signs of life. He never gained consciousness or any neurologic response during any of the time. The patient was pronounced in the ambulance at 2304 and allow them to bring him into the department so that we could talk to the family and make arrangements for disposition. Review of systems: As per history of present illness and below otherwise all systems reviewed and negative. Past medical history: As per history of present illness and as reviewed below otherwise noncontributory. Surgical history: As per history of present illness and as reviewed below otherwise noncontributory. Social history: No reported history of drug or alcohol abuse. Family history: As per history of present illness and as reviewed below otherwise noncontributory. Physical exam: Constitutional -it is a thin patient with muscle wasting. HEENT - normocephalic, no evidence of trauma -there is a stoma where the tracheostomy is. EYES -nipples fixed. No icterus. Respiratory - no respirations Cardiovascular -no pulse and no heart sounds GI - abdomen soft without distension or organomegaly Musculoskeletal no gross deformity of long bones or joints - no tenderness, swelling or edema Neurologic -patient has had no reflexes or evidence of neurologic activity for the entire time the paramedics had been with him or when I examined him. Integument - no rash or evidence of trauma - normal turgor-pale Diagnostics: [] Therapeutics: [] Impression: [] Plan: [] Definitive disposition and diagnosis as appropriate pending reevaluation and review of above. - Related Data Allergies Allergy/AdvReac Type Severity Reaction Status Date / Time No Known Allergies Allergy Verified 10/31/20 20:16 Home Meds: Home Meds Levothyroxine 125 mcg PO DAILY 10/27/13 [History] calcitrioL [Rocaltrol] 2 tab PO DAILY 10/27/13 [History] Ezetimibe [Zetia] 0.5 tab PO DAILY 10/14/15 [History] Lenvatinib Mesylate [Lenvima] 14 mg PO DAILY 02/25/20 [History] Metoprolol Succinate [Toprol XL 50mg] 50 mg PO DAILY 02/25/20 [History] amLODIPine [Norvasc] 5 mg PO DAILY 02/25/20 [History] Past Medical History HEENT History: Reports: None Cardiovascular History: Reports: Afib, High Cholesterol, Hypertension Respiratory History: Reports: None Gastrointestinal History: Reports: None Genitourinary History: Reports: None Musculoskeletal History: Reports: None Neurological History: Reports: None Psychiatric History: Reports: None Endocrine/Metabolic History: Reports: Hypothyroidism Hematologic History: Reports: None Oncologic (Cancer) History: Reports: Thyroid - Infectious Disease History Infectious Disease History: Reports: Chicken Pox, Measles, Mumps, Shingles - Past Surgical History Respiratory Surgical History: Reports: Tracheostomy Other Respiratory Surgeries/Procedures: Trach placed 2017 Oncologic Surgical History: Reports: Other (See Below) Other Oncologic Surgeries/Procedures: thyroidectomy Social & Family History - Family History Family Medical History: No Pertinent Family History - Caffeine Use Caffeine Use: Reports: Coffee ED ROS GENERAL - Review of Systems Review Of Systems: Unable To Obtain Reason Not Obtained: Unconscious ED EXAM, GENERAL - Physical Exam Exam: See Below Free Text/Narrative:: Physical exam is in the HPI Course - Vital Signs Text/Narrative:: Law enforcement and medical personnel showed me pictures of the scene showing enough blood that the exsanguination is most likely incompatible with life. Departure - Departure Time of Disposition: 23:21 Disposition: 20 Condition: Critical Clinical Impression: Cardiopulmonary arrest, Hemoptysis - Discharge Information
== END 2020-11-02 00:38 | disposition expired ==
LOC: MW.ED 23:22
DX: I46.9 Cardiac arrest, cause unspecified (principal); R04.2 Hemoptysis; I48.91 Unspecified atrial fibrillation; I10 Essential (primary) hypertension; E03.9 Hypothyroidism, unspecified; Z79.899 Other long term (current) drug therapy
CPT/HCPCS: 92950; 99285-25